=== PATIENT | female | born 1955 | race Caucasian/White ===

== ENCOUNTER 2017-08-19 07:15 | Day surgery (SDC) | payer OTHER ==
[2017-08-19] MEDS ORDERED: MIDAZOLAM INJ 2 MG/2 ML VIAL (J2250) As Ordered (08:09)
[2017-08-19] MEDS ORDERED: LIDOCAINE 2% INJ 100 MG/5 ML SDV (FOR ANES.) As Ordered (08:09)
[2017-08-19] MEDS ORDERED: fentaNYL 100 MCG/2 ML INJECTION (J3010) As Ordered (08:09)
[2017-08-19] MEDS ORDERED: PROPOFOL 200 MG/20 ML VIAL As Ordered (08:09)
[2017-08-19] MEDS: LR 1,000 ML IV (08:23)
[2017-08-19] MEDS: LIDOCAINE 2% MDV 20 ML VIAL As Ordered (09:05)
[2017-08-19] MEDS: BUPIVACAINE HCL 0.5% 10 ML VIAL As Ordered (09:05)
[2017-08-19] MEDS ORDERED: KETOROLAC 60 MG/2 ML VIAL (J1885) As Ordered (09:16)
[2017-08-19] MEDS ORDERED: ONDANSETRON 4MG/2ML VIAL (J2405) As Ordered (09:16)
[2017-08-19] MEDS ORDERED: dexameTHASONE 4 MG/ML 1ML VIAL (J1100) As Ordered (09:16)
[2017-08-19] MEDS: BACITRACIN PWD 50,000 UNITS VIAL As Ordered (09:26)
[2017-08-19] MEDS: dexameTHASONE 4 MG/ML 1ML VIAL (J1100) As Ordered (09:27)
[2017-08-19] MEDS: NEOSPORIN GU IRRIG 20 ML VIAL As Ordered (09:27)
[2017-08-19] MEDS ORDERED: ePHEDrine SULFATE 25 MG/5 ML(5MG/ML) SYRINGE As Ordered (09:28)
== END 2017-08-19 11:33 | disposition home or self-care (01) ==
LOC: M SDC 07:15
DX: M20.11 Hallux valgus (acquired), right foot (principal); I10 Essential (primary) hypertension; F32.9 Major depressive disorder, single episode, unspecified; Z79.899 Other long term (current) drug therapy
CPT/HCPCS: 28296

== ENCOUNTER 2020-12-26 09:18 | Day surgery (SDC) | payer BC ==
[~2020-12-26] VITALS: Ht 154.9 cm; Wt 56.4 kg
[~2020-12-26 09:18] MED LIST: ALEN35TA56 PO; ALTA1CAP3 PO; AMBI6.25 PO; BUPIVACAINE HCL 0.5% 30 ML VIAL As Ordered ONE; CALTCHW5 PO; DRIS50003 PO; ERGO500029 PO; GENTAMICIN SULF 80MG/2ML VIAL As Ordered ONE; LIDOCAINE 2% MDV 20ML VIAL As Ordered ONE; LR 1,000 ML IV ONE; SIMV20TA22 PO; ceFAZolin SOD 2 GM in IV 1 EA IV ONE; dexameTHASONE 4 MG/ML 1ML VIAL (J1100 PER 1MG) As Ordered ONE
[2020-12-26] MEDS ORDERED: MIDAZOLAM INJ 2MG/2ML VIAL (J2250 PER 1MG) As Ordered ONE (09:34)
[2020-12-26] MEDS ORDERED: ONDANSETRON 4MG/2ML VIAL As Ordered ONE (09:35)
[2020-12-26] MEDS ORDERED: fentaNYL 100 MCG/2 ML INJECTION As Ordered ONE (09:35)
[2020-12-26] MEDS ORDERED: ACETAMINOPHEN 1000MG 100ML IV BTL (OFIRMEV) (J0131 PER 10MG) As Ordered ONE (09:35)
[2020-12-26] MEDS ORDERED: propofoL 200 MG/20 ML VIAL As Ordered ONE (09:35)
[2020-12-26 12:20] VITALS: BP 137/77
== END 2020-12-26 12:51 | disposition home or self-care (01) ==
LOC: M SDC 09:18
PROVIDERS: ATTEND Podiatrist
DX: M20.12 Hallux valgus (acquired), left foot (principal); M72.2 Plantar fascial fibromatosis; R22.42 Localized swelling, mass and lump, left lower limb; M79.672 Pain in left foot
CPT/HCPCS: 28292; 73630; 76000; 88300; C1713; J0131; J0690; J1100; J1580; J2250; J2405; J3010

== ENCOUNTER → 2022-06-15 | Outpatient (CLI) | payer MEDICARE, BC ==
[~2022-06-15] MED LIST changes: -BUPIVACAINE HCL 0.5% 30 ML VIAL As Ordered ONE; -GENTAMICIN SULF 80MG/2ML VIAL As Ordered ONE; -LIDOCAINE 2% MDV 20ML VIAL As Ordered ONE; -LR 1,000 ML IV ONE; -ceFAZolin SOD 2 GM in IV 1 EA IV ONE; -dexameTHASONE 4 MG/ML 1ML VIAL (J1100 PER 1MG) As Ordered ONE
== END ==
LOC: M CARPUL 09:56
PROVIDERS: ATTEND Internal Medicine Pulmonary Disease
DX: R05.9 Cough, unspecified (principal)

== ENCOUNTER → 2022-07-20 | Outpatient (CLI) | payer MEDICARE, BC ==
[~2022-07-20] MED LIST changes: +METHACHOLINE KIT INH ONE
== END ==
LOC: M CARPUL 09:31
PROVIDERS: ATTEND Internal Medicine Pulmonary Disease
DX: R05.9 Cough, unspecified (principal)
CPT/HCPCS: 94070; 95070; J7674

== ENCOUNTER 2024-08-15 07:06 | Day surgery (SDC) | payer MEDICARE, BC ==
[~2024-08-15] VITALS: Ht 154.9 cm; Wt 52.6 kg
[~2024-08-15 07:06] MED LIST changes: -AMBI6.25 PO; +MELO10CA2; -METHACHOLINE KIT INH ONE; +ZOLP6.2544 PO
[2024-08-15 09:04] VITALS: TEMP 97.4
[2024-08-15 09:26] VITALS: BP 138/64; O2SAT 100
== END 2024-08-15 09:40 | disposition home or self-care (01) ==
LOC: M OPP 07:06
PROVIDERS: ATTEND Internal Medicine Gastroenterology
DX: Z12.11 Encounter for screening for malignant neoplasm of colon (principal); D12.0 Benign neoplasm of cecum; K57.30 Diverticulosis of large intestine without perforation or abscess without bleeding; K64.0 First degree hemorrhoids; Z79.899 Other long term (current) drug therapy